=== PATIENT | female | born 1955 | race Caucasian/White ===

== ENCOUNTER 2020-12-17 09:47 | Day surgery (SDC) | payer OTHER ==
[2020-12-14 11:53] LABS: Protime INR 0.99
--- NOTE | 2020-12-14 12:01 | RAD REPORT ---
EXAM DESCRIPTION: RAD - Chest Pa And Lat (2 Views) - 12/14/2020 11:35 am CLINICAL HISTORY: pre-op cath procedure Chest pain. COMPARISON: Chest Pa And Lat (2 Views) dated 01/27/2019; Chest Pa And Lat (2 Views) dated 07/02/2018; C hest Pa And Lat (2 Views) dated 07/01/2018 FINDINGS: The lungs are clear. The heart is normal in size. No displaced fractures. IMPRESSION: No acute or concerning finding suspected.
[2020-12-17] MEDS ORDERED: HEPA 1000U/500MLS 1,000 UNIT/500 ML BAG IV ONE (10:45)
[2020-12-17] MEDS ORDERED: NA CHLORIDE 0.9% 500 ML ONE (10:55)
[2020-12-17] MEDS ORDERED: FENTANYL CITR 100 MCG/2 ML ONE (11:39)
[2020-12-17] MEDS ORDERED: MIDAZOLAM HCL 2 MG/2 ML INJ ONE (11:39)
[2020-12-17] MEDS ORDERED: NA CHLORIDE 0.9% 0 ML ONE (11:39)
[2020-12-17] MEDS ORDERED: ATROPINE SULF 1 MG/10 ML SYR IV ONE (11:40)
--- NOTE | 2020-12-17 13:29 | OP ---
Surgeon: Gerber Alvares MD Procedure: Left heart catheterization with selective coronary arteriogram. Indication: Ventricular tachycardia and abnormal stress test. Ms. Cotton is a 65-year-old with his tory of hypertension, gastroesophageal reflux disease, hypothyroidism. Had a routine stress test jaquelin t showed short runs of ventricular tachycardia with some ST depression. Stressed Cardiolite showed a fixed apical defect. She was scheduled for a heart catheterization today, 12/17/2020. She underwen t a left heart catheterization and selective coronary arteriogram. Procedure In Detail: She was brought to the labor relations officer as an outpatient, prepped and draped in the [facility] sterile fashion. Given Versed and fentanyl for sedation. A 6-[place] sheath introduced in the r ight common femoral artery successfully using the Seldinger technique, 10 mL of Xylocaine were used. Lillian catheter left and right were used to do the heart catheterization. She was found to have no rmal coronaries. She had a normal left main, normal RCA which was codominant. Her circumflex system was normal, otherwise very large ramus that came out of the left main. Her circumflex itself was no rmal. Her LAD was normal with some tortuosity, but no focal stenosis. The patient tolerated the pro cedure well. There were no complications. Blood Loss: 5 mL. Anesthesia: Total conscious sedation 45 minutes. Postoperative Diagnoses: Ventricular tachycardia, abnormal stress test, normal coronaries. We will continue medical therapy. I will probably add a low-dose beta-denisse to her regimen, but maryse rae can go home today after 2 hours of bedrest and I will see her in the office soon. Angiography in t he right groin area showed normal angiography and Angio-Seal was used to close the case. She will go home in 2 hours. I will see her in the office in 2 weeks. LUDWIG/EVAN Voice ID: [id number] Report ID: [id number]
[2020-12-17 14:10] VITALS: BP 134/69; TEMP 98; O2SAT 95
== END 2020-12-17 14:30 | disposition home or self-care (01) ==
LOC: CCL 09:47
DX: R94.39 Abnormal result of other cardiovascular function study (principal); I47.2 Ventricular tachycardia; I10 Essential (primary) hypertension; K21.9 Gastro-esophageal reflux disease without esophagitis; E03.9 Hypothyroidism, unspecified; Z87.891 Personal history of nicotine dependence; Z88.0 Allergy status to penicillin; Z88.6 Allergy status to analgesic agent; Z20.822 Contact with and (suspected) exposure to COVID-19
CPT/HCPCS: 36415; 85610; 85730; 71046; 93454; U0003; C1893; C1760; J2250; J3010; J7040; J1644; J0583

== ENCOUNTER 2023-02-16 09:35 | Day surgery (SDC) | payer OTHER ==
[2023-02-16 10:41] LABS: Potassium 4.1 mEq/L (3.5-5.1)
[2023-02-16] MEDS ORDERED: Ringers Lactate 1,000 ML IV ONE (10:41)
[2023-02-16] MEDS ORDERED: propofoL 200 MG/20 ML VIAL IV ONE ×4 (11:45→12:19)
[2023-02-16] MEDS ORDERED: FENTANYL CITR 100 MCG/2 ML ONE (11:45)
[2023-02-16] MEDS ORDERED: LIDOCAINE 2% MPF 5 ML VIAL ONE (11:45)
[2023-02-16] MEDS ORDERED: ONDANSETRON 4 MG/2 ML VIAL ONE (11:45)
[2023-02-16 13:47] VITALS: O2SAT 97
[2023-02-16 13:49] VITALS: BP 143/74; TEMP 98
--- NOTE | 2023-02-16 17:02 | EKG ---
Test Date: 2023-02-16 Test Time: 09:58:19 Forms Designer: IVÁN MEASUREMENT RESULTS: Intervals: Rate: 53 AK: 184 QRSD: 90 QT: 452 QTc: 424 [place]: P: 43 AK: 184 QRS: -2 T: 16 INTERPRETIVE STATEMENTS: Sinus bradycardia Otherwise normal ECG Compared to ECG 08/17/2002 15:07:00 Sinus rhythm no longer present Electronically Signed On 02-16-23 17:01:07 CDT by Eugene Elias
== END 2023-02-16 12:52 | disposition home or self-care (01) ==
LOC: OR 09:35
PROVIDERS: ATTEND Surgery
PROC: 0DBL8ZX Excision of Transverse Colon, Via Natural or Artificial Opening Endoscopic, Diagnostic (ICD-10-PCS; 2023-02-16)
PROC: 0DBP8ZX Excision of Rectum, Via Natural or Artificial Opening Endoscopic, Diagnostic (ICD-10-PCS; 2023-02-16)
PROC: 0DBH8ZX Excision of Cecum, Via Natural or Artificial Opening Endoscopic, Diagnostic (ICD-10-PCS; principal; 2023-02-16 11:30)
DX: Z12.11 Encounter for screening for malignant neoplasm of colon (principal); D12.3 Benign neoplasm of transverse colon; K63.89 Other specified diseases of intestine; K64.8 Other hemorrhoids; K64.4 Residual hemorrhoidal skin tags; D12.7 Benign neoplasm of rectosigmoid junction; D12.0 Benign neoplasm of cecum; K63.5 Polyp of colon; I10 Essential (primary) hypertension; E03.9 Hypothyroidism, unspecified
CPT/HCPCS: 93005; 80048; 36415; 88305; 45380; J2704 ×3; J2001; J2405; J7120; J3010

== ENCOUNTER 2024-01-01 07:20 | Day surgery (SDC) | payer OTHER ==
[2023-12-30 09:09] LABS: Absolute Eosinophils 0.1 K/uL (0-0.5); Absolute Lymphocytes (CBC) 1.5 K/uL (0.7-4.9); Absolute Monocytes 0.5 K/uL (0.1-1.3); Absolute Neutrophil 1.8 K/uL (1.8-8.0); Basophils % 1.2 % (0-1.3); Eosinophils % 3.1 % (0-4.4); Hematocrit 41.4 % (36.0-45.0); Hemoglobin 13.9 g/dL (12.0-15.0); Lymphocytes % 38.6 % (15.3-44.8); MCH 34.8 pg (27.0-35.0); MCHC 33.7 g/dL (32.0-36.0); MCV 103.2 fL (80-100); MPV 7.7 fL (7.6-11.3); Monocytes % 12.6 % (3.3-12.3); Neutrophils % 44.5 % (41.7-73.7); Nucleated Red Blood Cells % 0.1 % (0-0); Platelets 207 thou/uL (152-406); RBC Red Blood Cell Count 4.01 M/uL (3.86-4.86); Red Cell Distribution Width 13.5 % (12.1-15.2)
--- NOTE | 2023-12-31 12:54 | EKG ---
Test Date: 2023-12-30 Test Time: 08:53:09 Audio/Visual Manager: AUGIE MEASUREMENT RESULTS: Intervals: Rate: 57 DC: 184 QRSD: 98 QT: 438 QTc: 426 [place]: P: 47 DC: 184 QRS: 0 T: 40 INTERPRETIVE STATEMENTS: Sinus bradycardia Otherwise normal ECG Compared to ECG 02/16/2023 09:58:19 No significant changes Electronically Signed On 12-31-23 12:53:57 CDT by Will Carias
[2024-01-01] MEDS: Ringers Lactate 1,000 ML IV ONE (07:37)
[2024-01-01] MEDS ORDERED: LIDOCAINE 1% MPF 5 ML VIAL ONE (08:37)
[2024-01-01] MEDS ORDERED: propofoL 200 MG/20 ML VIAL IV ONE ×2 (08:37)
[2024-01-01 09:41] VITALS: TEMP 98.3
[2024-01-01 10:08] VITALS: BP 118/67; O2SAT 99
== END 2024-01-01 10:05 | disposition home or self-care (01) ==
LOC: OR 07:20
PROVIDERS: ATTEND Surgery
PROC: 0DB78ZX Excision of Stomach, Pylorus, Via Natural or Artificial Opening Endoscopic, Diagnostic (ICD-10-PCS; 2024-01-01)
PROC: 0D738ZZ Dilation of Lower Esophagus, Via Natural or Artificial Opening Endoscopic (ICD-10-PCS; 2024-01-01)
PROC: 0DB98ZX Excision of Duodenum, Via Natural or Artificial Opening Endoscopic, Diagnostic (ICD-10-PCS; principal; 2024-01-01 08:45)
DX: K22.2 Esophageal obstruction (principal); R13.19 Other dysphagia; K29.50 Unspecified chronic gastritis without bleeding
CPT/HCPCS: 93005; 85025; 80048; 36415; 88312; 88305; 43239; 43249; J2704 ×2; J2001; J7120; C1726 ×3